=== PATIENT | male | born 1950 | race Caucasian/White ===

== ENCOUNTER → 2020-08-29 | Outpatient (CLI) | payer MEDICARE ==
[~2020-08-29] MED LIST: ASPIRIN 81M81 MG/TA2 PO; BRILINTA90 MG PO; LIPITOR 40MG TA40 MG PO; LIPITOR 80MG80 MG PO; NITRO-DUR0.4 MG/PAT TD; NITROSTAT0.4 MG/TAB SL; PLAVIX 75MG TAB75 MG PO; ZEBETA10 MG PO; ZESTRIL 20MG TA20 MG PO
== END ==
LOC: COL.LAB 08:00 → EDSTATUS 09-01 10:00 → COL.CAR 09-01 10:00
DX: U07.1 COVID-19 (principal)

== ENCOUNTER 2020-09-21 09:45 | Day surgery (SDC) | payer MEDICARE ==
[2020-09-21] VITALS (10 sets, daily range): BP systolic 101–126; BP diastolic 59–78; PULSE 39–47; TEMP 97.6
[~2020-09-21] VITALS: Ht 175.3 cm; Wt 64.0 kg
[~2020-09-21 09:45] MED LIST changes: -LIPITOR 80MG80 MG PO; -PLAVIX 75MG TAB75 MG PO; -ZEBETA10 MG PO
[2020-09-21] MEDS ORDERED: PLAVIX 75MG TAB75 MG PO (10:38)
[2020-09-21] MEDS ORDERED: ZEBETA10 MG PO (10:39)
[2020-09-21] MEDS ORDERED: LIPITOR 80MG80 MG PO (10:40)
[2020-09-21] MEDS ORDERED: NITROSTAT0.4 MG/TAB SL (10:42)
[2020-09-21] MEDS ORDERED: NITRO-DUR0.4 MG/PAT TD (10:42)
[2020-09-21 11:11] LABS: HEMATOCRIT 39.5 % (42.0-52.0); HEMOGLOBIN 13.2 g/dl (13.5-18.0); MEAN CELL VOLUME 89 fl (80.0-100.0); MEAN CORPUSCULAR HEMOGLOBIN 30 pg (27.0-31.0); MEAN CORPUSCULAR HGB CONC 33 g/dl (33.0-37.0); MEAN PLATELET VOLUME 9.5 fl (7.4-10.4); PLATELET COUNT 232 K/mm3 (130-400); RED BLOOD COUNT 4.44 M/mm3 (4.20-5.60); REDCELL DISTRIBUTION WIDTH-CV 12.8 % (11.5-14.5)
[2020-09-21 11:21] LABS: PROTHROMBIN TIME 11.2 SECONDS (9.7-12.8)
[2020-09-21 11:22] LABS: CALCIUM 9.1 mg/dL (8.4-10.2); CREATININE, serum 0.89 (0.66-1.25); POTASSIUM 4.7 mmol/L (3.4-5.0)
[2020-09-21 11:24] LABS: PARTIAL THROMBOPLASTIN TIME 29.9 SECONDS (26.0-37.0)
--- NOTE | 2020-09-21 12:45 | NUR ---
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 Pt denies needs at this time. sinus beni on monitor rate 40's. Pt updated on poc. call light in reach.
--- NOTE | 2020-09-21 13:00 | NUR ---
PT SLEEPING, AROUSABLE TO VOICE. VSS.
--- NOTE | 2020-09-21 16:30 | NUR ---
Pt is ready to go home, TR band has been deflated with no problem. Site dressed with bandaid, folded 2x2 and coban. cms remains intact distal. I have reviewed dc/fu instructions with pt who verbalizes understanding. IV is dc'd with cath intact, dressing applied. Pt has been ambulatory in room with steady gait. To exit via wheelchair at [id number].
== END 2020-09-21 18:02 | disposition home or self-care (01) ==
LOC: COL.CAR 09:45
PROVIDERS: Internal Medicine Cardiovascular Disease
DX: I25.110 Atherosclerotic heart disease of native coronary artery with unstable angina pectoris (principal); E78.5 Hyperlipidemia, unspecified; R94.39 Abnormal result of other cardiovascular function study; I42.9 Cardiomyopathy, unspecified; I25.2 Old myocardial infarction; I44.30 Unspecified atrioventricular block; I48.0 Paroxysmal atrial fibrillation; I10 Essential (primary) hypertension; Z79.01 Long term (current) use of anticoagulants
CPT/HCPCS: C1769; C1887; J0153; J1644; J2250; J3010